=== PATIENT | male | born 1990 | race Two or more races ===

== ENCOUNTER 2020-01-12 10:30 | Emergency (ER) | payer OTHER ==
[2020-01-12 10:44] VITALS: BP 136/78; PULSE 76; TEMP 98.7; BMI 26.4
--- OUTSIDE RECORDS SUMMARY | 2020-01-12 10:57 | XMS ---
:1990 Author Organization [facility] Support Name Relationship Address Phone [employer] Unavailable [address] [address] [place] [address] ALISE ONOFRE [address] [place] [address] Re-disclosure Warning The records that you are about to access may contain information from federally- assisted alcohol or drug abuse programs. If such information is present, then the following federally mandated warning applies: This information has been disclosed to you from records protected by federal confidentiality rules (42 CFR part 2). The federal rules prohibit you from making any further disclosure of this information unless further disclosure is expressly permitted by the written consent of the person to whom it pertains or as otherwise permitted by 42 CFR part 2. A general authorization for the release of medical or other information is NOT sufficient for this purpose. The Federal rules restrict any use of the information to criminally investigate or prosecute any alcohol or drug abuse patient.The records that you are about to access may contain highly sensitive health information, the redisclosure of which is protected by Article 27-F of the [facility] Public Health law. If you continue you may haveaccess to information: Regarding HIV / AIDS; Provided by facilities licensed or operated by the [facility] Office of Mental Health; or Provided by the [facility] Office for People With Developmental Disabilities. If such information is present, then the following [facility] mandated warning applies: This information has been disclosed to you from confidential records which are protected by state law. State law prohibits you from making any further disclosure of this information without the specific written consent of the person to whom it pertains, or as otherwise permitted by law. Any unauthorized further disclosure in violation of state law may result in a fine or intermediate sentence or both. A general authorization for the release of medical or other information is NOT sufficient authorization for further disclosure. Insurance Providers Payer name Policy type Policy ID Covered Covered green party's Policy P tawanda / Coverage green party ID relationship to [employer] ormation type [id number] PENDING [id number] SP [id number] WC/NF ONLY
[2020-01-12] MEDS ORDERED: IBUPROFEN 400 MG TABLET (FP) PO ONE ×2 (11:29→11:31)
--- NOTE | 2020-01-12 11:34 | PDOC ---
History of Present Illness - General Chief Complaint: Injury Stated Complaint: ANKLE INJURY Time Seen by Provider: 01/12/20 10:56 History Source: Patient - History of Present Illness Occurred: reports: this morning Severity: Yes: moderate Lower Extremity Pain Location: right: ankle Method of Injury: Yes: twisted Past History - Medical History Allergies/Adverse Reactions: Allergies Allergy/AdvReac Type Severity Reaction Status Date / Time No Known Allergies Allergy Verified 01/12/20 10:39 Home Medications: Ambulatory Orders Ibuprofen [Motrin -] 800 mg PO Q6H #30 tablet 01/12/20 COPD: No - Psycho-Social/Smoking History Smoking History: Never smoked Have you smoked in the past 12 months: No - Substance Abuse Hx (Audit-C & DAST Scrn) How often the patient has a drink containing alcohol: Never Score: In Men: 4 or > Positive; In Women: 3 or > Positive: 0 Screen Result (Pos requires Nsg. Audit-10AR): Negative In the last yr the pt used illegal drug/Rx for NonMed reason: No Score: Yes response is considered Positive: 0 Screen Result (Positive result requires Nsg. DAST-10): Negative Review of Systems - Review of Systems Musculoskeletal: Yes: Joint Pain, Joint Swelling *Physical Exam - Vital Signs Last Vital Signs Temp Pulse Resp BP Pulse Ox 98.7 F 76 18 136/78 100 01/12/20 10:39 01/12/20 10:39 01/12/20 10:39 01/12/20 10:39 01/12/20 10:39 - Physical Exam General Appearance: Yes: Appropriately Dressed. No: Apparent Distress HEENT: positive: Normal Voice Neck: positive: Supple Respiratory/Chest: negative: Respiratory Distress Extremity: positive: Normal Range of Motion, Tender, Swelling (to lateral mal or R ankle) Integumentary: positive: Dry, Warm Neurologic: positive: Fully Oriented, Alert, Normal Mood/Affect ED Treatment Course - RADIOLOGY Radiology Studies Ordered: Category Date Time Status ANKLE & FOOT-RIGHT* [RAD] Stat Radiology 01/12/20 10:56 Completed Medical Decision Making - Medical Decision Making 01/12/20 11:33 29-year-old male no significant history here with right ankle pain and swelling after twisting injury this a.m. Has pain with weightbearing. see exam Ankle sprain XR neg DENY placed and crutches given Dose of motrin in ED Dc w/ RICE and ortho f/u as needed Discharge - Discharge Information Problems reviewed: Yes Clinical Impression/Diagnosis: Ankle sprain Qualifiers: Encounter type: initial encounter Involved ligament of ankle: unspecified ligament Laterality: right Qualified Code(s): S93.401A - Sprain of unspecified ligament of right ankle, initial encounter Condition: Good Disposition: HOME - Additional Discharge Information Prescriptions: Ibuprofen [Motrin -] 800 mg PO Q6H #30 tablet - Follow up/Referral Referrals: Tod Alvarez MD [Staff Physician] - - Patient Discharge Instructions Patient Printed Discharge Instructions: DI for Ankle Sprain Additional Instructions: Your x-ray shows no fracture You were treated for an ankle sprain. Keep Deny in place and use crutches for environmental assistant with weight bearing. Take Motrin as directed If symptoms persist after 2 weeks, please follow-up with Dr. Alvarez of orthopedics - Post Discharge Activity Work/Back to School Note: Back to Work
== END 2020-01-12 11:49 | disposition home or self-care (01) ==
LOC: JERFT 10:30
DX: S93.401A Sprain of unspecified ligament of right ankle, initial encounter (principal)
CPT/HCPCS: 73610-TC-RT-FY; 73630-TC-RT-FY; 99283-25